=== PATIENT | female | born 1955 | race Caucasian/White ===

== ENCOUNTER → 2017-08-28 | Outpatient (CLI) | payer MEDICAID ==
[~2017-08-28] MED LIST: ASP81TEC PO; BENZ100C18 PO; CHOL10003 PO; HYDR-3714 PO; LANS15CA PO; LEVO500T69 PO; LISI1TAB10 PO; MELO-195 PO; MTF500T PO; MULT-963 PO; VIT D; [UNRECOGNIZED DRUG - REMARK]
--- NOTE | 2017-08-28 18:25 | Diagnostic Imaging Report ---
INDICATION: Digital mammogram bilateral screening. This study was compared to the prior exam of 11/04/12. At this time, there are no current complaints. The current study was also evaluated with a Computer Aided Detection (CAD) system. FINDINGS: There are scattered fibroglandular densities in both breasts which could obscure a lesion. Overall, there does not appear to have been any significant change when compared to the previous study. There are a number of benign-appearing nodules in both breasts. There is no primary or secondary sign of malignancy noted. IMPRESSION: 1. There is no evidence of malignancy. 2. The patient should have her annual bilateral screening mammogram on schedule in August of 2018. ACR BI-RADS Category 1: Negative. Result letter will be mailed to the patient. Note: At least 10% of breast cancer is not imaged by mammography. Dictated by: Dictated on workstation # [id number]
== END ==
LOC: RAD 08:39
PROVIDERS: ATTEND Family Medicine
DX: Z12.31 Encounter for screening mammogram for malignant neoplasm of breast (principal); R06.02 Shortness of breath
CPT/HCPCS: 77067; 93306

== ENCOUNTER 2018-02-02 05:34 | Outpatient (CLI) | payer MEDICAID ==
[~2018-02-02] VITALS: Ht 167.6 cm; Wt 134.2 kg
[2018-02-02] MEDS ORDERED: DIPH25CA6 PO (13:35)
[2018-02-02] MEDS ORDERED: LISI40TA PO (13:35)
[2018-02-02] MEDS ORDERED: METF-760 PO (13:35)
[2018-02-02] MEDS ORDERED: ASPI-586 PO (13:35)
[2018-02-02] MEDS ORDERED: AMLO5TAB2 PO (13:35)
[2018-02-02] MEDS ORDERED: ATOR40TA70 PO (13:35)
[2018-02-02] MEDS ORDERED: HYDR25TA4 PO (13:35)
[2018-02-02] MEDS ORDERED: MELO15TA39 PO (13:35)
[2018-02-02] MEDS ORDERED: LANS30CA PO (13:35)
== END 2018-02-02 13:41 | disposition home or self-care (01) ==
LOC: PREOP 05:34
PROVIDERS: ATTEND Surgery
DX: Z01.818 Encounter for other preprocedural examination (principal)

== ENCOUNTER 2018-02-09 07:56 | Day surgery (SDC) | payer MEDICAID ==
[~2018-02-09] VITALS: Ht 167.6 cm; Wt 134.2 kg
[~2018-02-09 07:56] MED LIST changes: +AMLO5TAB2 PO; +ASPI-586 PO; +ATOR40TA70 PO; +DIPH25CA6 PO; +HYDR25TA4 PO; +LANS30CA PO; +LISI40TA PO; +MELO15TA39 PO; +METF-760 PO
[2018-02-09] MEDS ORDERED: LACTATED RINGERS 1,000 ML IV ONE (08:08)
[2018-02-09] MEDS ORDERED: LACTATED RINGERS 1,000 ML IV STA (08:08)
[2018-02-09 08:10] VITALS: BP 115/113
[2018-02-09] MEDS ORDERED: PROPOFOL INJECTION 50 ML IV ONE (09:01)
[2018-02-09] MEDS ORDERED: MIDAZOLAM 2 MG/2 ML (VERSED) VIAL ONE (09:01)
--- NOTE | 2018-02-09 09:05 | Progress Note-Pre Operative ---
Pre-Operative Progress Note H&P Reviewed The H&P was reviewed, patient examined and no changes noted. Time Seen by Provider: 08:54 Date H&P Reviewed: Feb 09, 2018 Time H&P Reviewed: 08:57 Pre-Operative Diagnosis: Rectal bleed SHIRA LAY DO Feb 09, 2018 09:05
[2018-02-09 10:00] VITALS: BP 167/98
--- NOTE | 2018-02-09 10:11 | Progress Note-Post Operative ---
Post-Operative Progess Note Surgeon (s)/Digester Operator (s) Surgeon SHIRA LAY DO Digester Operator: none Pre-Operative Diagnosis Rectal bleed Post-Operative Diagnosis Same plus: Transverse Colon polyp Diverticula Int Hem Procedure & Operative Findings Date of Procedure 02/09/18 Procedure Performed/Findings Colon with cold bx Anesthesia Type IV sedation by HOG KILLER Estimated Blood Loss Estimated blood loss (mL): scant Specimens/Packing Specimens Removed transverse colon bx, entire polyp removed in 2 bites SHIRA LAY DO Feb 09, 2018 10:11
--- NOTE | 2018-02-09 10:12 | Endoscopy Discharge Instruct ---
Endo Procedure/Findings Findings 1.: Polyp 2.: Diverticulosis 3.: Internal Hemorrhoids Discharge Instructions - Activity: You might feel a little sleepy until tomorrow. This is due to the medicine you received to relax you. Until tomorrow, you should: NOT drive a car, operate machinery or power tools. NOT drink any alcoholic beverages. NOT make any important decisions or sign importortant papers. Do not return to work until tomorrow, unless otherwise instructed. Resume previous activities tomorrow. Diet: Start by taking liquids. If you tolerate liquids, advance to solid food. make appointment for one week Notify Physician - If you experience excessive bleeding, unusual abdominal pain, fever, or chest pain, contact your doctor immediately. Follow-Up: - I have received and understand the above instructions and will call my doctor if I have any further questions. Patient Signature Date Nurse Signature Other (Relationship) SHIRA LAY DO Feb 09, 2018 10:12
[2018-02-09 10:30] VITALS: BP 149/103
[2018-02-09 10:35] VITALS: BP 149/103
--- NOTE | 2018-02-09 14:55 | Anesthesia-General Post-Op ---
MAC Patient Condition Mental Status/LOC: Same as Preop Cardiovascular: Satisfactory Nausea/Vomiting: Absent Respiratory: Satisfactory Pain: Controlled Complications: Absent Post Op Complications Complications None Follow Up Care/Instructions Patient Instructions None needed. Anesthesiology Discharge Order Discharge Order Patient is doing well, no complaints, stable vital signs, no apparent adverse anesthesia problems. No complications reported per nursing. ROSALBA ALCALA CRNA Feb 09, 2018 14:55
--- NOTE | 2018-02-09 16:06 | OPERATIVE REPORT ---
DATE OF SERVICE: 02/09/2018 PREOPERATIVE DIAGNOSIS: Rectal bleed as well as greater than 10 years since last colonoscopy. POSTOPERATIVE DIAGNOSES: 1. Transverse colon polyp. 2. Diverticula. 3. Internal and external hemorrhoids. PROCEDURE: Colonoscopy with cold biopsy. SURGEON: Michael Mckenna DO. VEST MAKER: None. ANESTHESIA: IV sedation by the SUSPENDER CUTTER. SPECIMEN: Transverse colon polyp taken in 2 bites. BLOOD LOSS: Scant. FLUIDS: Per anesthesia. POSTOPERATIVE CONDITION: Stable. INDICATION FOR PROCEDURE: The patient is a 62-year-old female who has not had a colonoscopy in over 10 years and has been having a little bit of bleeding posterior hemorrhoids. FINDINGS: The patient had a small transverse colon polyp. She also had some diverticula. She had some internal hemorrhoids probably just grade I and she had some external hemorrhoidal skin tissue. PROCEDURE NOTE: After informed consent was obtained, the patient was brought to the endoscopy suite and placed in the left lateral decubitus position. She was administered IV sedation by the SUSPENDER CUTTER who then monitored her vitals the entire time, heart rate, blood pressure and pulse ox and the scope was inserted, pushed all the way to about 100 cm, able to get all the way to the cecum, took a picture of the appendiceal orifice and noted the ileocecal valve, then slowly withdrew the scope insufflating to look circumferentially at the dykes looking at the cecum up the ascending colon to hepatic flexure, then down the transverse colon. Some in the transverse colon, saw a small flat polyp, elected to do a cold biopsy, able to remove this polyp completely with 2 bites and continued down the transverse colon, the splenic flexure, then into the descending colon, saw some diverticula throughout the descending colon and sigmoid colon. Continued down into the rectum, retroflexed in the rectal vault, saw some minimal internal hemorrhoids, took a picture of this, removed the scope, took a picture of the external hemorrhoids. The patient tolerated the procedure well. She was recovered in the endoscopy suite. Job ID: [id number] DocumentID: [id number] Dictated Date: 02/09/2018 10:14:52 Small Business Consultant Date: 02/09/2018 16:05:58 Dictated By: MICHAEL MCKENNA DO
== END 2018-02-09 10:40 | disposition home or self-care (01) ==
LOC: ENDO 07:56
PROVIDERS: ATTEND Surgery
DX: D12.3 Benign neoplasm of transverse colon (principal); K57.30 Diverticulosis of large intestine without perforation or abscess without bleeding; K64.4 Residual hemorrhoidal skin tags; K64.8 Other hemorrhoids; E11.9 Type 2 diabetes mellitus without complications; I10 Essential (primary) hypertension; E78.5 Hyperlipidemia, unspecified; J45.909 Unspecified asthma, uncomplicated; G43.909 Migraine, unspecified, not intractable, without status migrainosus; E66.01 Morbid (severe) obesity due to excess calories; Z68.42 Body mass index [BMI] 45.0-49.9, adult; Z79.82 Long term (current) use of aspirin; Z79.899 Other long term (current) drug therapy
CPT/HCPCS: 88305

== ENCOUNTER → 2020-01-13 | Outpatient (CLI) | payer MEDICAID ==
[~2020-01-13] MED LIST changes: -AMLO5TAB2 PO; +AMLO5TAB9 PO; +DIPH25CA48 PO; -DIPH25CA6 PO
--- NOTE | 2020-01-13 15:02 | Diagnostic Imaging Report ---
INDICATION: 2-D and 3-D digital screening mammography with CAD. COMPARISON: 09/2017. FINDINGS: A new aggregate of somewhat pleomorphic microcalcifications have developed in the posterior aspect of the upper outer quadrant of the left breast. Further characterization with magnification spot views as well as 90 degree lateral medial view recommended. There is a questionable density associated with these calcifications. This has best seen in the CC view and at the time of diagnostic views if there is a persistent associated density, a targeted ultrasound at that date may also be of utility. The right mammogram is stable and negative. Otherwise, there is scattered fibroglandular elements unchanged. IMPRESSION: Development of clustered microcalcifications, upper outer quadrant left breast may or may not be associated with a small nodule. Diagnostic views and possible ultrasound recommended as discussed on the left. BI-RADS Category 0. ACR BI-RADS Category 0: Incomplete. (Needs additional imaging evaluation). Result letter will be mailed to the patient. Note: At least 10% of breast cancer is not imaged by mammography. Dictated by: Dictated on workstation # [id number]
== END ==
LOC: RAD 10:58
PROVIDERS: ATTEND Family Medicine
DX: Z12.31 Encounter for screening mammogram for malignant neoplasm of breast (principal); R92.0 Mammographic microcalcification found on diagnostic imaging of breast
CPT/HCPCS: 77063; 77067

== ENCOUNTER → 2021-03-01 | Outpatient (CLI) | payer MEDICAID ==
[~2021-03-01] MED LIST changes: +AMLO-250 PO; -AMLO5TAB9 PO; -LISI40TA PO; +LISI40TA9 PO; -METF-760 PO; +METF-845 PO
--- NOTE | 2021-03-01 16:52 | Diagnostic Imaging Report ---
EXAMINATION: Magnetic resonance imaging of the right knee without intravenous contrast DATE: March 01, 2021. COMPARISON: None. INDICATION: 65-year-old female, right knee pain. TECHNIQUE: Multiplanar, multisequence non contrast enhanced MR imaging was accomplished. FINDINGS: There is low qdmlam-rr-deavy ratio relating to patient body habitus and the coil that had to be utilized. MENISCI: There is generalized roughly 50-75% volume loss of the medial meniscus. There is medial meniscal extrusion and a tear of the posterior horn of the medial meniscus. The lateral meniscus is intact. LIGAMENTS AND TENDONS: The anterior and posterior cruciate ligaments are intact. The medial collateral ligament is intact. The iliotibial band, mid third lateral capsular ligament, fibular collateral ligament, biceps femoris tendon and conjoined tendon are intact. The quadriceps tendon and patella ligament are intact. JOINT: There are broad areas of full-thickness cartilage loss of the medial compartment and patellofemoral compartment. There is no knee joint effusion, prominent synovitis, or intra-articular body. BONE: There is unremarkable bone marrow signal. Specifically, negative for fracture, osteomyelitis, osteonecrosis, or marrow replacing process. BURSAE AND SOFT TISSUES: There is no Sanchez's cyst. There is abnormal fluid signal within Hoffa's fat which is fairly focal and masslike and measures approximately 1.6 x 1.4 x 1.3 cm in size. There is nonspecific prepatellar subcutaneous edema. IMPRESSION: 1. Severe medial and patellofemoral compartment osteoarthritis without knee joint effusion. 2. Volume loss of the medial meniscus with medial meniscal extrusion and tear of the posterior horn of the medial meniscus. 3. Intact lateral meniscus. 4. Intact anterior and posterior cruciate ligaments. Additional ligaments and tendons are intact. 5. No acute fracture or bone contusion. 6. Focal fluid signal in Hoffa's fat of unclear exact etiology. This potentially could relate to a ganglion cyst or nonspecific fluid collection. Dictated by: Dictated on workstation # [id number]
== END ==
LOC: RAD 15:30
PROVIDERS: ATTEND Nurse Practitioner Family
DX: S83.241A Other tear of medial meniscus, current injury, right knee, initial encounter (principal); X58.XXXA Exposure to other specified factors, initial encounter; M17.11 Unilateral primary osteoarthritis, right knee
CPT/HCPCS: 73721

== ENCOUNTER → 2021-12-03 | Outpatient (CLI) | payer MEDICAID | LOC: CARD 09:14 | PROVIDERS: ATTEND Physician Assistant | DX: I11.9 Hypertensive heart disease without heart failure (principal); I25.10 Atherosclerotic heart disease of native coronary artery without angina pectoris | CPT/HCPCS: 93306 ==

== ENCOUNTER → 2023-02-20 | Outpatient (CLI) | payer MEDICAID ==
[~2023-02-20] MED LIST changes: +DIPH-1122 PO; -DIPH25CA48 PO
== END ==
LOC: CARD 08:50
PROVIDERS: ATTEND Family Medicine
DX: M79.89 Other specified soft tissue disorders (principal)
CPT/HCPCS: 93306

== ENCOUNTER → 2023-05-20 | Outpatient (CLI) | payer MEDICAID ==
--- NOTE | 2023-05-20 15:22 | Diagnostic Imaging Report ---
INDICATION: Postmenopausal state. COMPARISON: None available. FINDINGS: AP Spine L1-L4: [BMD (g/cm2): 1.207] [T-Score: 0.1] [Z-Score: 0.5] [BMD Previous: NA] [BMD % Change: NA] LT Hip Neck: [BMD (g/cm2): 0.821] [T-Score: -1.6] [Z-Score: -0.8] LT Hip Total: [BMD (g/cm2):1.023] [T-Score:0.1] [Z-Score: 0.6] [BMD Previous: NA] [BMD % Change: NA] RT Hip Neck: [BMD (g/cm2):0.978] [T-Score:-0.4] [Z-Score:0.3] RT Hip Total: [BMD (g/cm2):1.003] [T-score:0.0] [Z-Score:0.4] [BMD Previous:NA] [BMD % Change:NA] *Indicates significant change from prior examination based on 95% confidence level. World Health Organization criteria for BMD interpretation classify patients as Normal (T-score at or above -1.0), Osteopenic (T-score between -1.0 and -2.5) or Osteoporotic (T-score at or below -2.5). LIMITATIONS AND MODIFICATION: None. FRACTURE RISK (FRAX SCORE): The ten year probability of (%): Major Osteoporotic Fracture: [7.7] Hip Fracture: [0.8] IMPRESSION: 1. Osteopenia (Low bone mass). 2. Baseline examination. 3. See below National Osteoporosis Foundation guidelines on when to potentially initiate pharmacologic therapy. Based on the National Osteoporosis Foundation Guidelines, pharmacologic treatment should be initiated in any of the following, unless clinical conditions suggest otherwise: * Any patient with prior fragility fracture of the hip or vertebrae. A spine fracture indicates 5X risk for subsequent spine fracture and 2X risk for subsequent hip fracture. * Osteoporosis (T-score <-2.5). * Postmenopausal women and men age 50 and older with low bone mass/osteopenia (T-score between -1.0 and -2.5) by DXA and 10-year major osteoporotic fracture greater than 20% or a 10-year probability of hip fracture greater than 3%. These fracture risks are supplied above in the FRAX score, if applicable. * Clinician judgement and/or patient preferences may indicate treatment for people with 10-year fracture probabilities above or below these levels. Dictated by: Dictated on workstation # [id number]
== END ==
LOC: RAD 10:31
PROVIDERS: ATTEND Family Medicine
DX: M85.852 Other specified disorders of bone density and structure, left thigh (principal); Z78.0 Asymptomatic menopausal state
CPT/HCPCS: 77080